=== PATIENT | female | born 1980 | race Native Hawaiian/Other Pacific Islander ===

== ENCOUNTER 2016-08-16 11:46 | Emergency (ER) | payer OTHER ==
[2016-08-16] MEDS ORDERED: Sodium Chloride 0.9% 1,000 ML IV ONE (12:14)
[2016-08-16] MEDS ORDERED: Sodium Chloride 0.9% 1,000 ML ONE (12:20)
[2016-08-16 12:41] LABS: BASO # 0.1 K/uL (0.0-0.2); BASO % 0.6 % (0.0-2.0); EOS # 0.1 K/uL (0.0-0.7); EOS % 1.8 % (0.0-4.0); HEMOGLOBIN 12.4 g/dL (11.0-16.0); LYMPH # 1.4 K/uL (1.0-4.3); LYMPH % 17.1 % (20.0-40.0); MEAN CELL VOLUME 86.2 fL (81.0-99.0); MEAN CORPUSCULAR HEMOGLOBIN 27.9 pg (27.0-31.0); MEAN CORPUSCULAR HGB CONC 32.4 g/dL (33.0-37.0); MEAN PLATELET VOLUME 9.4 fL (7.2-11.7); MONO # 0.6 K/uL (0.0-0.8); NEUT # 6.1 K/uL (1.8-7.0); NEUT % 73.5 % (50.0-75.0); NRBC % 0.1 % (0.0-2.0); RBC 4.44 Mil/uL (3.80-5.20); RED CELL DISTRIBUTION WIDTH 13.5 % (11.5-14.5); WHITE BLOOD COUNT 8.2 K/uL (4.8-10.8)
[2016-08-16 12:44] LABS: HCG,QUALITATIVE URINE NEGATIVE (NEGATIVE)
[2016-08-16 12:50] LABS: SQUAMOUS EPITHIAL 1 /hpf (0-5); URINE BACTERIA RARE (<OCC); URINE BILIRUBIN NEGATIVE (NEGATIVE); URINE BLOOD NEGATIVE (NEGATIVE); URINE CLARITY Hazy (Clear); URINE COLOR Yellow (YELLOW); URINE GLUCOSE (UA) NORMAL (Normal); URINE LEUKOCYTE ESTERASE 2+ Leu/uL (Negative); URINE NITRATE NEGATIVE (NEGATIVE); URINE PROTEIN NEGATIVE (NEGATIVE); URINE UROBILINOGEN NORMAL mg/dL (0.2-1.0)
--- NOTE | 2016-08-16 12:51 | C.PDOC ---
History Of Present Illness 36 y/o female brought to the ED by EMS from dentist office for evaluation of low blood pressure. Patient states that she was given local anesthesia for tooth extraction today, and states she is "not sure if I fell asleep, or fainted in the chair after extraction." Pt also complains of itchy rash to groin , and thinks that it is a fungal infection. She has tried OTC topical cream on the rash without improvement. Patient denies dizziness/lightheadedness, chest pain, palpitations, shortness of breath, fever, visual changes, facial droop, slurred speech, extremity weakness, sensory changes. Time Seen by Provider: 08/16/16 11:54 Chief Complaint (Nursing): Syncope History Per: Patient History/Exam Limitations: no limitations Current Symptoms Are (Timing): Still Present Severity: Mild Additional History Per: Patient Past Medical History Reviewed: Historical Data, Nursing Documentation, Vital Signs Vital Signs: Last Vital Signs Temp 98.2 F 08/16/16 14:29 Pulse 60 08/16/16 14:29 Resp 16 08/16/16 14:29 BP 113/70 08/16/16 14:29 Pulse Ox 99 08/16/16 14:29 - Medical History PMH: Asthma Family History: States: No Known Family Hx - Social History Hx Alcohol Use: Yes Hx Substance Use: No - Immunization History Hx Tetanus Toxoid Vaccination: No Hx Influenza Vaccination: No Hx Pneumococcal Vaccination: No Review Of Systems Except As Marked, All Systems Reviewed And Found Negative. Constitutional: Negative for: Fever, Chills Cardiovascular: Negative for: Chest Pain, Palpitations, Light Headedness Respiratory: Negative for: Cough, Shortness of Breath Gastrointestinal: Negative for: Nausea, Vomiting, Abdominal Pain Skin: Positive for: Rash (itchy rash to groin) Neurological: Negative for: Weakness, Numbness, Headache, Dizziness Physical Exam - Physical Exam Appears: Well, Non-toxic, Other (anxious) Skin: Normal Color, Warm, Dry, Rash (inguinal area with scaley, erythemtous, fungal appearing rash) Head: Atraumatic, Normacephalic Eye(s): bilateral: Normal Inspection, PERRL, EOMI Oral Mucosa: Moist Neck: Normal ROM, Supple Cardiovascular: Rhythm Regular Respiratory: Normal Breath Sounds, No Accessory Muscle Use, No Rales, No Rhonchi , No Wheezing Gastrointestinal/Abdominal: Normal Exam, Bowel Sounds, Soft, No Tenderness Extremity: Normal ROM, No Pedal Edema, No Calf Tenderness Neurological/Psych: Oriented x3, Normal Speech, Normal Cognition, Normal Cranial Nerves, No Cerebellar Signs, Normal Motor, Normal Sensation, Normal Reflexes ED Course And Treatment - Laboratory Results Result Diagrams: 08/16/16 12:30 08/16/16 12:30 ECG: Interpreted By Me, Viewed By Me ECG Rhythm: Sinus Bradycardia ECG Interpretation: No Acute Changes Interpretation Of ECG: Normal axis, no acute ST/T wave changes. Rate From EC (bpm) O2 Sat by Pulse Oximetry: 100 (on RA) Pulse Ox Interpretation: Normal Progress Note: Blood work, urinalysis, EKG ordered and reviewed. Patient was given IV NS bolus. Reevaluation Time: 14:15 Reassessment Condition: Improved (On reassessment, patient is resting comfortably and states she feels better. She is ambulating normally in the ED. Blood work & EKG unremarkable. Patient instructed to follow up with PMD/ clinic in 1-2 days, and understands she should return to ED if symptoms worsen.) Disposition Counseled Patient/Family Regarding: Studies Performed, Diagnosis, Need For Followup, Rx Given - Disposition Referrals: Baron Fitzpatrick MD [Staff Provider] - Disposition: HOME/ ROUTINE Disposition Time: 14:15 Condition: STABLE Additional Instructions: FOLLOW UP WITH YOUR DOCTOR IN 1 -2 DAYS DRINK PLENTY OF FLUIDS RETURN TO ER IF YOU HAVE ANY CONCERNING SYMPTOMS Prescriptions: Ketoconazole 2% Cr [Nizoral] 1 appl EXT DAILY #1 tube Instructions: Tinea Corporis (ED) Forms: General Discharge Instructions Print Language: ARMENIAN - POA Present On Arrival: None - Clinical Impression Clinical Impression: Near syncope, Tinea cruris - Scribe Statement The provider has reviewed the documentation as recorded by the Scribamber Fitzpatrick All medical record entries made by the Gregorioibamber were at my direction and personally dictated by me. I have reviewed the chart and agree that the record accurately reflects my personal performance of the history, physical exam, medical decision making, and the department course for this patient. I have also personally directed, reviewed, and agree with the discharge instructions and disposition.
[2016-08-16 12:59] LABS: ALBUMIN 3.6 g/dL (3.5-5.0)
[2016-08-16 13:01] LABS: GFR AFRICAN-AMERICAN > 60; GFR NON-AFRICAN AMERICAN > 60
[2016-08-16 13:02] LABS: ALB/GLOB RATIO 1.1 (1.0-2.1); ALT/SGPT 27 U/L (9-52); AST/SGOT 20 U/L (14-36); BLOOD UREA NITROGEN 9 mg/dL (7-17)
[2016-08-16 13:03] LABS: CALCIUM 8.7 mg/dl (8.6-10.4)
[2016-08-16 14:31] VITALS: BP 113/70; PULSE 60; RESP 16; TEMP 98.2
--- NOTE | 2016-08-18 13:39 | CARD ---
APPROVED REPORT EKG Measurement Heart [id number] <Conclusion> Sinus bradycardia Otherwise normal ECG
[2016-08-26 10:09] VITALS: O2SAT 100
== END 2016-08-16 14:29 | disposition home or self-care (01) ==
LOC: C.ER 11:46
DX: R55 Syncope and collapse (principal); B35.6 Tinea cruris
CPT/HCPCS: 80053; 81001; 82948; 84703; 85025; 93005; 96360; 99285; J7040